=== PATIENT | male | born 1985 | race Caucasian/White ===

== ENCOUNTER 2020-07-26 09:23 | Emergency (ER) | payer OTHER ==
[~2020-07-26] VITALS: Ht 177.8 cm; Wt 124.7 kg
[2020-07-26] MEDS ORDERED: CYCLOBENZAPRINE5 MG PO (09:41)
[2020-07-26] MEDS ORDERED: IBUPROFEN600 MG PO (09:41)
== END 2020-07-26 10:26 | disposition home or self-care (01) ==
LOC: ED 09:23
DX: S39.012A Strain of muscle, fascia and tendon of lower back, initial encounter (principal); X50.0XXA Overexertion from strenuous movement or load, initial encounter
CPT/HCPCS: 72100; 99283-25

== ENCOUNTER → 2020-07-30 | Emergency (ER) | payer OTHER ==
[~2020-07-30] VITALS: Ht 177.8 cm; Wt 124.7 kg
[~2020-07-30] MED LIST: CYCLOBENZAPRINE5 MG PO; IBUPROFEN600 MG PO; NORCO 5-325 TA1 EACH PO
--- OUTSIDE RECORDS SUMMARY | 2020-07-30 16:22 | XMS ---
PreManage Notification: SEBLE BRYAN [employer] Events No recent Security Events currently on file CRITERIA MET - [facility] - 2 Visits in 30 Days CARE PROVIDERS There are no care providers on record at this time. Isaiah has no Care Guidelines for this patient. Miguel Angel VISIT COUNT (12 MO.) [facility] NOTE: Visits indicate total known visits. ED/[facility] VISIT TRACKING (12 MO.) 07/30/2020 16:[address] [facility] TYPE: Emergency COMPLAINT: - BACK PAIN 07/26/2020 09:[address] [facility] TYPE: Emergency COMPLAINT: - BACK PAIN DIAGNOSES: - Low back pain - Overexertion from strenuous movement or load, initial encounter - Strain of muscle, fascia and tendon of lower back, initial encounter INPATIENT VISIT TRACKING (12 MO.) No inpatient visits to display in this time frame [email or web address]
== END ==
LOC: ED 16:19
DX: S39.012A Strain of muscle, fascia and tendon of lower back, initial encounter (principal); F17.200 Nicotine dependence, unspecified, uncomplicated; X58.XXXA Exposure to other specified factors, initial encounter
CPT/HCPCS: 99283